=== PATIENT | male | born 1970 | race African-American/Black ===

== ENCOUNTER 2016-10-04 09:52 | Emergency (ER) | payer SELFPAY ==
[~2016-10-04] VITALS: Ht 185.4 cm; Wt 91.0 kg
[2016-10-04] MEDS ORDERED: MORPHINE SULFATE 4 MG/ML CPJ (NOT FOR IM USE) IV STA (10:24)
[2016-10-04] MEDS ORDERED: SODIUM CHLORIDE 0.9% 1,000 ML IV ONE (10:24)
[2016-10-04] MEDS ORDERED: ONDANSETRON HCL 4MG/2ML VIAL IV STA (10:24)
[2016-10-04] MEDS ORDERED: KETOROLAC 30MG/ML VIAL IV ONE (10:30)
[2016-10-04 10:41] LABS: EOSINOPHILS % 3.4 % (0.0-5.0); HEMATOCRIT. 46.4 % (42.0-52.0); HEMOGLOBIN. 15.8 g/dL (14.0-18.0); LYMPHOCYTES % 23.9 % (20.0-50.0); MEAN CORPUSCULAR VOLUME 87.7 fL (80.0-94.0); MONOCYTES % 8.9 % (2.0-8.0); NEUTROPHILS % 62.8 % (40.0-76.0); PLATELET 182 x1000/uL (130-400); RED BLOOD CELL COUNT 5.28 mill/uL (4.7-6.1); RED CELL DISTRIBUTION WIDTH 13.3 % (11.6-14.6)
[2016-10-04 10:54] LABS: INR 1.1; PARTIAL THROMBOPLASTIN TIME 28.9 sec (23.4-31.0); PROTHROMBIN TIME 11.3 sec (9.4-11.6)
[2016-10-04 11:00] LABS: CARBON DIOXIDE 32 mEq/L (21-32); CHLORIDE 104 mEq/L (98-107)
[2016-10-04 11:14] LABS: CLARITY URINE CLEAR (CLEAR); COLOR URINE YELLOW (YELLOW); GLUCOSE URINE NEGATIVE (NEGATIVE); KETONES URINE NEGATIVE (NEGATIVE); LEUKOCYTE ESTERASE URINE NEGATIVE (NEGATIVE); NITRITE URINE NEGATIVE (NEGATIVE); OCCULT BLOOD URINE NEGATIVE (NEGATIVE); PH URINE 6.5 (4.5-8.0); PROTEIN URINE NEGATIVE (NEGATIVE); SPECIFIC GRAVITY URINE 1.009 (1.005-1.030); UROBILINOGEN URINE 0.2 E.U./dL (0.2-1.0)
[2016-10-04 11:57] LABS: *AMPHETAMINES SCREEN URINE PRESUMTIVE POSITIVE (NEGATIVE); *BARBITURATES SCREEN URINE NEGATIVE (NEGATIVE); *BENZODIAZEPINES SCREEN URINE NEGATIVE (NEGATIVE); *COCAINE SCREEN URINE NEGATIVE (NEGATIVE); CANNABINOID URINE SCREEN NEGATIVE (NEGATIVE); METHADONE URINE SCREEN NEGATIVE (NEGATIVE); OPIATES URINE SCREEN NEGATIVE (NEGATIVE); PHENCYCLIDINE URINE SCREEN NEGATIVE (NEGATIVE)
[2016-10-04 12:10] VITALS: BP 125/66
[2016-10-04] MEDS ORDERED: IOHEXOL-300 100 ML BOTTLE ONE (14:03)
[2016-10-04] MEDS ORDERED: SODIUM CHLORIDE 0.9% 10ML VIAL ONE (14:03)
== END 2016-10-04 12:53 | disposition home or self-care (01) ==
LOC: ER 10:18
DX: R10.30 Lower abdominal pain, unspecified (principal); K59.09 Other constipation; F19.129 Other psychoactive substance abuse with intoxication, unspecified
CPT/HCPCS: 36415; 74177; 80053; 80305; 81003; 83690; 85025; 85610; 85730; 96361; 96374; 96375; 96376; 99285; A4216; G0482; J1885; J2270; J2405; J7030; Q9967; Z7610

== ENCOUNTER 2016-10-13 08:48 | Emergency (ER) | payer MEDICAID ==
[~2016-10-13] VITALS: Ht 182.9 cm; Wt 75.0 kg
[2016-10-13] MEDS ORDERED: MORPHINE SULFATE 4 MG/ML CPJ (NOT FOR IM USE) IV STA (09:32)
[2016-10-13] MEDS ORDERED: FAMOTIDINE 20MG/2ML VIAL IV STA (09:32)
[2016-10-13] MEDS ORDERED: ONDANSETRON HCL 4MG/2ML VIAL IV STA (09:32)
[2016-10-13] MEDS ORDERED: SODIUM CHLORIDE 0.9% 1,000 ML IV ONE (09:32)
[2016-10-13 09:55] LABS: BASOPHILS % 0.8 % (0.0-2.0); EOSINOPHILS % 1.3 % (0.0-5.0); HEMOGLOBIN. 16.3 g/dL (14.0-18.0); LYMPHOCYTES % 21.4 % (20.0-50.0); MEAN CORPUSCULAR VOLUME 88.6 fL (80.0-94.0); MEAN PLATELET VOLUME 8.2 fl (7.4-10.4); MONOCYTES % 7.1 % (2.0-8.0); NEUTROPHILS % 69.4 % (40.0-76.0); PLATELET 188 x1000/uL (130-400); RED BLOOD CELL COUNT 5.43 mill/uL (4.7-6.1); RED CELL DISTRIBUTION WIDTH 13.9 % (11.6-14.6)
[2016-10-13] MEDS ORDERED: LORAZEPAM 2MG/ML CPJ IV ONE (10:00)
[2016-10-13 10:04] LABS: PARTIAL THROMBOPLASTIN TIME 30.1 sec (23.4-31.0); PROTHROMBIN TIME 10.7 sec (9.4-11.6)
[2016-10-13 10:11] LABS: CLARITY URINE CLEAR (CLEAR); COLOR URINE YELLOW (YELLOW); GLUCOSE URINE NEGATIVE (NEGATIVE); KETONES URINE 1+ (NEGATIVE); LEUKOCYTE ESTERASE URINE NEGATIVE (NEGATIVE); NITRITE URINE NEGATIVE (NEGATIVE); OCCULT BLOOD URINE NEGATIVE (NEGATIVE); PROTEIN URINE NEGATIVE (NEGATIVE); SPECIFIC GRAVITY URINE 1.007 (1.005-1.030); UROBILINOGEN URINE 0.2 E.U./dL (0.2-1.0)
[2016-10-13 10:11] LABS: CARBON DIOXIDE 27 mEq/L (21-32); CHLORIDE 100 mEq/L (98-107); ETHANOL BLOOD < 10 mg/dL
[2016-10-13 10:57] LABS: *AMPHETAMINES SCREEN URINE PRESUMTIVE POSITIVE (NEGATIVE); *BARBITURATES SCREEN URINE NEGATIVE (NEGATIVE); *BENZODIAZEPINES SCREEN URINE NEGATIVE (NEGATIVE); *COCAINE SCREEN URINE PRESUMTIVE POSITIVE (NEGATIVE); CANNABINOID URINE SCREEN NEGATIVE (NEGATIVE); METHADONE URINE SCREEN NEGATIVE (NEGATIVE); OPIATES URINE SCREEN NEGATIVE (NEGATIVE); PHENCYCLIDINE URINE SCREEN NEGATIVE (NEGATIVE)
[2016-10-13 12:32] VITALS: BP 122/62
== END 2016-10-13 12:34 | disposition home or self-care (01) ==
LOC: ER 09:20
DX: F15.10 Other stimulant abuse, uncomplicated (principal); F14.10 Cocaine abuse, uncomplicated; R10.9 Unspecified abdominal pain; F19.10 Other psychoactive substance abuse, uncomplicated; R11.2 Nausea with vomiting, unspecified
CPT/HCPCS: 36415; 74022; 80053; 80305; 81003; 83690; 85025; 85610; 85730; 96361; 96374; 96375; 99285; G0482; J2060; J2270; J2405; J3490; J7030; Z7610

== ENCOUNTER 2016-10-14 12:09 | Emergency (ER) | payer MEDICAID ==
[~2016-10-14] VITALS: Ht 182.9 cm; Wt 91.0 kg
[2016-10-14 12:34] VITALS: BP 118/89
== END 2016-10-14 14:50 | disposition left against medical advice (07) ==
LOC: ER 12:09
DX: K59.00 Constipation, unspecified (principal); Z53.21 Procedure and treatment not carried out due to patient leaving prior to being seen by health care provider

== ENCOUNTER 2016-10-15 08:11 | Emergency (ER) | payer MEDICAID ==
[~2016-10-15] VITALS: Ht 182.9 cm; Wt 121.0 kg
[2016-10-15 11:09] LABS: CLARITY URINE CLEAR (CLEAR); COLOR URINE DARK YELLOW (YELLOW); GLUCOSE URINE NEGATIVE (NEGATIVE); KETONES URINE 2+ (NEGATIVE); LEUKOCYTE ESTERASE URINE NEGATIVE (NEGATIVE); NITRITE URINE NEGATIVE (NEGATIVE); OCCULT BLOOD URINE NEGATIVE (NEGATIVE); PROTEIN URINE TRACE (NEGATIVE); SPECIFIC GRAVITY URINE 1.031 (1.005-1.030)
[2016-10-15 11:17] LABS: CHLORIDE 102 mEq/L (98-107); PROTHROMBIN TIME 10.7 sec (9.4-11.6)
[2016-10-15 11:20] LABS: BASOPHILS % 0.7 % (0.0-2.0); EOSINOPHILS % 3.7 % (0.0-5.0); HEMATOCRIT. 47.7 % (42.0-52.0); LYMPHOCYTES % 29.1 % (20.0-50.0); MEAN CORPUSCULAR HEMOGLOBIN 29.8 pg (28.0-32.0); MEAN CORPUSCULAR VOLUME 89.1 fL (80.0-94.0); MEAN PLATELET VOLUME 8.3 fl (7.4-10.4); MONOCYTES % 7.7 % (2.0-8.0); NEUTROPHILS % 58.8 % (40.0-76.0); PLATELET 177 x1000/uL (130-400); RED BLOOD CELL COUNT 5.35 mill/uL (4.7-6.1)
[2016-10-15 11:23] LABS: CARBON DIOXIDE 30 mEq/L (21-32)
[2016-10-15 11:28] LABS: *AMPHETAMINES SCREEN URINE PRESUMTIVE POSITIVE (NEGATIVE); *BARBITURATES SCREEN URINE NEGATIVE (NEGATIVE); *BENZODIAZEPINES SCREEN URINE NEGATIVE (NEGATIVE); *COCAINE SCREEN URINE PRESUMTIVE POSITIVE (NEGATIVE); CANNABINOID URINE SCREEN NEGATIVE (NEGATIVE); METHADONE URINE SCREEN NEGATIVE (NEGATIVE); OPIATES URINE SCREEN PRESUMTIVE POSITIVE (NEGATIVE); PHENCYCLIDINE URINE SCREEN NEGATIVE (NEGATIVE)
[2016-10-15 14:06] VITALS: BP 115/68
== END 2016-10-15 14:29 | disposition home or self-care (01) ==
LOC: ER 10:31
DX: K59.00 Constipation, unspecified (principal); F17.200 Nicotine dependence, unspecified, uncomplicated; F11.10 Opioid abuse, uncomplicated; F15.10 Other stimulant abuse, uncomplicated
CPT/HCPCS: 36415; 74010; 80053; 80305; 81001; 83690; 85025; 85610; 99285

== ENCOUNTER 2016-10-26 06:56 | Emergency (ER) | payer MEDICAID ==
[~2016-10-26] VITALS: Ht 185.4 cm; Wt 91.0 kg
[2016-10-26] MEDS ORDERED: IBUPROFEN 800MG TABLET PO ONE (10:30)
[2016-10-26 11:00] VITALS: BP 122/82
== END 2016-10-26 11:31 | disposition home or self-care (01) ==
LOC: ER 10:46
DX: R51 Headache (principal); F17.200 Nicotine dependence, unspecified, uncomplicated; F11.10 Opioid abuse, uncomplicated; F12.10 Cannabis abuse, uncomplicated
CPT/HCPCS: 99283

== ENCOUNTER 2016-10-27 07:30 | Emergency (ER) | payer MEDICAID ==
[~2016-10-27] VITALS: Ht 185.4 cm; Wt 91.0 kg
[2016-10-27 08:45] VITALS: BP 121/77
[2016-10-27] MEDS ORDERED: KETOROLAC 60MG/2ML VIAL IM ONE (08:45)
== END 2016-10-27 09:33 | disposition home or self-care (01) ==
LOC: ER 07:30
DX: R51 Headache (principal); R03.0 Elevated blood-pressure reading, without diagnosis of hypertension; F17.200 Nicotine dependence, unspecified, uncomplicated
CPT/HCPCS: 96372; 99283; J1885; Z7610

== ENCOUNTER 2016-11-11 12:42 | Emergency (ER) | payer MEDICAID ==
[~2016-11-11] VITALS: Ht 180.3 cm; Wt 83.0 kg
[2016-11-11] MEDS ORDERED: MORPHINE SULFATE 4 MG/ML CPJ (NOT FOR IM USE) IV STA (14:00)
[2016-11-11] MEDS ORDERED: MAGNESIUM/ALUMINUM HYDROXIDE/SIMETHICONE 30ML UDC PO STA (14:00)
[2016-11-11] MEDS ORDERED: FAMOTIDINE 20MG/2ML VIAL IV STA (14:00)
[2016-11-11] MEDS ORDERED: SODIUM CHLORIDE 0.9% 1,000 ML IV ONE (14:00)
[2016-11-11] MEDS ORDERED: ONDANSETRON HCL 4MG/2ML VIAL IV STA (14:00)
[2016-11-11] MEDS ORDERED: LORAZEPAM 2MG/ML CPJ IV ONE (14:45)
[2016-11-11 14:47] LABS: BASOPHILS % 0.6 % (0.0-2.0); EOSINOPHILS % 1.5 % (0.0-5.0); HEMATOCRIT. 49.1 % (42.0-52.0); HEMOGLOBIN. 16.7 g/dL (14.0-18.0); LYMPHOCYTES % 23.3 % (20.0-50.0); MEAN CORPUSCULAR HEMOGLOBIN 30.6 pg (28.0-32.0); MEAN PLATELET VOLUME 8.8 fl (7.4-10.4); MONOCYTES % 8.9 % (2.0-8.0); NEUTROPHILS % 65.7 % (40.0-76.0); PLATELET 191 x1000/uL (130-400); RED BLOOD CELL COUNT 5.45 mill/uL (4.7-6.1); RED CELL DISTRIBUTION WIDTH 14.6 % (11.6-14.6)
[2016-11-11 14:53] LABS: D-DIMER 0.22 mg/L FEU (<0.50); INR 1.1
[2016-11-11 15:02] LABS: CARBON DIOXIDE 32 mEq/L (21-32); CHLORIDE 101 mEq/L (98-107); ETHANOL BLOOD < 10 mg/dL; TROPONIN I < 0.02 ng/mL (0.00-0.04)
[2016-11-11 20:30] VITALS: BP 129/90
== END 2016-11-11 20:45 | disposition home or self-care (01) ==
LOC: ER 13:21
DX: T50.901A Poisoning by unspecified drugs, medicaments and biological substances, accidental (unintentional), initial encounter (principal); K29.70 Gastritis, unspecified, without bleeding; K21.9 Gastro-esophageal reflux disease without esophagitis; R06.81 Apnea, not elsewhere classified; Y92.89 Other specified places as the place of occurrence of the external cause; R07.89 Other chest pain
CPT/HCPCS: 36415; 71010; 76705; 80053; 83690; 83880; 84484; 85025; 85379; 85610; 93005; 96361; 96374; 96375; 99285; G0482; J2060; J2270; J2405; J3490; J7030

== ENCOUNTER 2016-11-30 10:38 | Emergency (ER) | payer MEDICAID ==
[~2016-11-30] VITALS: Ht 180.3 cm; Wt 90.0 kg
[2016-11-30] MEDS ORDERED: SODIUM CHLORIDE 0.9% 1,000 ML IV ONE (10:51)
[2016-11-30] MEDS ORDERED: LORAZEPAM 2MG/ML CPJ IV ONE ×2 (11:00→12:00)
[2016-11-30] MEDS ORDERED: LORAZEPAM 2MG/ML CPJ IM ONE (11:00)
[2016-11-30 11:18] LABS: BASOPHILS % 0.8 % (0.0-2.0); EOSINOPHILS % 2.1 % (0.0-5.0); HEMATOCRIT. 47.6 % (42.0-52.0); HEMOGLOBIN. 16.1 g/dL (14.0-18.0); LYMPHOCYTES % 23.6 % (20.0-50.0); MEAN CORPUSCULAR HEMOGLOBIN 30.4 pg (28.0-32.0); MEAN CORPUSCULAR VOLUME 89.8 fL (80.0-94.0); MONOCYTES % 10.1 % (2.0-8.0); NEUTROPHILS % 63.4 % (40.0-76.0); PLATELET 206 x1000/uL (130-400); RED CELL DISTRIBUTION WIDTH 15.4 % (11.6-14.6)
[2016-11-30 11:35] LABS: CARBON DIOXIDE 25 mEq/L (21-32); CHLORIDE 100 mEq/L (98-107); ETHANOL BLOOD < 10 mg/dL; TROPONIN I < 0.02 ng/mL (0.00-0.04)
[2016-11-30 11:58] LABS: INR 1.1; PROTHROMBIN TIME 11.3 sec (9.4-11.6)
[2016-11-30 14:27] VITALS: BP 134/90
[2016-11-30 15:37] LABS: *AMPHETAMINES SCREEN URINE PRESUMTIVE POSITIVE (NEGATIVE); *BARBITURATES SCREEN URINE NEGATIVE (NEGATIVE); *BENZODIAZEPINES SCREEN URINE NEGATIVE (NEGATIVE); *COCAINE SCREEN URINE PRESUMTIVE POSITIVE (NEGATIVE); CANNABINOID URINE SCREEN PRESUMTIVE POSITIVE (NEGATIVE); METHADONE URINE SCREEN NEGATIVE (NEGATIVE); OPIATES URINE SCREEN NEGATIVE (NEGATIVE); PHENCYCLIDINE URINE SCREEN NEGATIVE (NEGATIVE)
== END 2016-11-30 18:52 | disposition home or self-care (01) ==
LOC: ER 11:02
DX: R07.89 Other chest pain (principal); F19.10 Other psychoactive substance abuse, uncomplicated; F41.9 Anxiety disorder, unspecified; R05 Cough; F12.90 Cannabis use, unspecified, uncomplicated; R45.1 Restlessness and agitation; R06.02 Shortness of breath
CPT/HCPCS: 36415; 71010; 80053; 80305; 83880; 84484; 85025; 85610; 93005; 96361; 96372; 96374; 99285; G0482; J2060; J7030

== ENCOUNTER 2016-12-01 06:24 | Emergency (ER) | payer MEDICAID ==
[~2016-12-01] VITALS: Ht 182.9 cm; Wt 89.0 kg
[2016-12-01 06:55] VITALS: BP 136/85
== END 2016-12-01 11:10 | disposition home or self-care (01) ==
LOC: ER 06:40
DX: R07.9 Chest pain, unspecified (principal); F32.9 Major depressive disorder, single episode, unspecified; F20.9 Schizophrenia, unspecified; F43.10 Post-traumatic stress disorder, unspecified; R45.851 Suicidal ideations; F17.200 Nicotine dependence, unspecified, uncomplicated; F14.10 Cocaine abuse, uncomplicated; F15.10 Other stimulant abuse, uncomplicated
CPT/HCPCS: 93005; 99283

== ENCOUNTER 2016-12-10 07:21 | Emergency (ER) | payer MEDICAID ==
[~2016-12-10] VITALS: Ht 182.9 cm; Wt 86.0 kg
[2016-12-10] MEDS ORDERED: LORAZEPAM 0.5MG TABLET PO ONE (09:00)
[2016-12-10 09:13] LABS: BASOPHILS % 0.9 % (0.0-2.0); HEMATOCRIT. 47.5 % (42.0-52.0); HEMOGLOBIN. 15.9 g/dL (14.0-18.0); LYMPHOCYTES % 25.5 % (20.0-50.0); MEAN CORPUSCULAR HEMOGLOBIN 30.5 pg (28.0-32.0); MEAN CORPUSCULAR VOLUME 91.1 fL (80.0-94.0); MEAN PLATELET VOLUME 7.2 fl (7.4-10.4); MONOCYTES % 7.3 % (2.0-8.0); NEUTROPHILS % 63.3 % (40.0-76.0); PLATELET 212 x1000/uL (130-400); RED BLOOD CELL COUNT 5.22 mill/uL (4.7-6.1); RED CELL DISTRIBUTION WIDTH 14.8 % (11.6-14.6)
[2016-12-10 09:18] LABS: CHLORIDE 104 mEq/L (98-107)
[2016-12-10 09:24] LABS: CARBON DIOXIDE 30 mEq/L (21-32); ETHANOL BLOOD < 10 mg/dL
[2016-12-10 09:50] LABS: *AMPHETAMINES SCREEN URINE NEGATIVE (NEGATIVE); *BARBITURATES SCREEN URINE NEGATIVE (NEGATIVE); *BENZODIAZEPINES SCREEN URINE PRESUMTIVE POSITIVE (NEGATIVE); *COCAINE SCREEN URINE PRESUMTIVE POSITIVE (NEGATIVE); CANNABINOID URINE SCREEN PRESUMTIVE POSITIVE (NEGATIVE); METHADONE URINE SCREEN NEGATIVE (NEGATIVE); OPIATES URINE SCREEN NEGATIVE (NEGATIVE); PHENCYCLIDINE URINE SCREEN NEGATIVE (NEGATIVE)
[2016-12-10 12:58] VITALS: BP 116/72
== END 2016-12-10 13:07 | disposition home or self-care (01) ==
LOC: ER 07:31
DX: F41.1 Generalized anxiety disorder (principal); F17.200 Nicotine dependence, unspecified, uncomplicated; F20.9 Schizophrenia, unspecified; F32.9 Major depressive disorder, single episode, unspecified; F14.10 Cocaine abuse, uncomplicated; F13.10 Sedative, hypnotic or anxiolytic abuse, uncomplicated; F12.10 Cannabis abuse, uncomplicated; F15.10 Other stimulant abuse, uncomplicated
CPT/HCPCS: 36415; 80048; 80305; 85025; 99284; G0482; Z7610

== ENCOUNTER 2018-04-26 21:13 | Emergency (ER) | payer MEDICAID ==
[~2018-04-26] VITALS: Ht 182.9 cm; Wt 84.0 kg
[2018-04-26 21:41] VITALS: BP 129/83
== END 2018-04-26 23:24 | disposition left against medical advice (07) ==
LOC: ER 21:13
DX: Z53.21 Procedure and treatment not carried out due to patient leaving prior to being seen by health care provider (principal)
CPT/HCPCS: 93005

== ENCOUNTER 2018-05-07 22:04 | Emergency (ER) | payer MEDICAID ==
[~2018-05-07] VITALS: Ht 180.3 cm; Wt 75.0 kg
[2018-05-08] MEDS ORDERED: LORAZEPAM 1MG TABLET PO ONE ×2 (00:30→08:15)
[2018-05-08 00:49] LABS: BASOPHILS % 0.6 % (0.0-2.0); EOSINOPHILS % 1.4 % (0.0-5.0); HEMOGLOBIN. 17.1 g/dL (14.0-18.0); LYMPHOCYTES % 28.1 % (20.0-50.0); MEAN CORPUSCULAR HEMOGLOBIN 31.2 pg (28.0-32.0); MEAN CORPUSCULAR VOLUME 93.2 fL (80.0-94.0); MEAN PLATELET VOLUME 8.1 fl (7.4-10.4); MONOCYTES % 9.1 % (2.0-8.0); NEUTROPHILS % 60.8 % (40.0-76.0); PLATELET 211 x1000/uL (130-400); RED BLOOD CELL COUNT 5.47 mill/uL (4.7-6.1); RED CELL DISTRIBUTION WIDTH 15.3 % (11.6-14.6)
[2018-05-08 00:51] LABS: CHLORIDE 105 mEq/L (98-107)
[2018-05-08 00:56] LABS: ETHANOL BLOOD < 10 mg/dL
[2018-05-08 00:59] LABS: CLARITY URINE CLEAR (CLEAR); COLOR URINE YELLOW (YELLOW); KETONES URINE TRACE (NEGATIVE); LEUKOCYTE ESTERASE URINE NEGATIVE (NEGATIVE); NITRITE URINE NEGATIVE (NEGATIVE); OCCULT BLOOD URINE NEGATIVE (NEGATIVE); PH URINE 5.5 (4.5-8.0); PROTEIN URINE TRACE (NEGATIVE); SPECIFIC GRAVITY URINE 1.036 (1.005-1.030)
[2018-05-08 01:12] LABS: *AMPHETAMINES SCREEN URINE NEGATIVE (NEGATIVE); *BARBITURATES SCREEN URINE NEGATIVE (NEGATIVE); *BENZODIAZEPINES SCREEN URINE NEGATIVE (NEGATIVE); *COCAINE SCREEN URINE NEGATIVE (NEGATIVE); CANNABINOID URINE SCREEN NEGATIVE (NEGATIVE); METHADONE URINE SCREEN NEGATIVE (NEGATIVE); OPIATES URINE SCREEN NEGATIVE (NEGATIVE); PHENCYCLIDINE URINE SCREEN NEGATIVE (NEGATIVE)
[2018-05-08 15:59] VITALS: BP 129/90
== END 2018-05-08 15:59 | disposition home or self-care (01) ==
LOC: ER 22:04
DX: R44.1 Visual hallucinations (principal); R45.851 Suicidal ideations; F17.200 Nicotine dependence, unspecified, uncomplicated; F12.10 Cannabis abuse, uncomplicated; F41.9 Anxiety disorder, unspecified
CPT/HCPCS: 36415; 80305; 80307; 80320; 80329; 99284; G0480

== ENCOUNTER 2018-05-09 06:30 | Emergency (ER) | payer MEDICAID ==
[~2018-05-09] VITALS: Ht 185.4 cm; Wt 81.0 kg
[2018-05-09] MEDS ORDERED: LORAZEPAM 1MG TABLET PO ONE (10:15)
[2018-05-09 10:20] VITALS: BP 116/78
== END 2018-05-09 11:36 | disposition left against medical advice (07) ==
LOC: ER 06:52
DX: F41.9 Anxiety disorder, unspecified (principal); F43.10 Post-traumatic stress disorder, unspecified; F32.9 Major depressive disorder, single episode, unspecified
CPT/HCPCS: 99285

== ENCOUNTER 2018-05-17 04:24 | Emergency (ER) | payer MEDICAID ==
[~2018-05-17] VITALS: Ht 177.8 cm; Wt 79.0 kg
[2018-05-17] MEDS ORDERED: SODIUM CHLORIDE 0.9% 1,000 ML IV ONE (06:37)
[2018-05-17] MEDS ORDERED: LORAZEPAM 2MG/ML CPJ IV ONE (06:45)
[2018-05-17 06:56] LABS: BASOPHILS % 0.6 % (0.0-2.0); EOSINOPHILS % 2.2 % (0.0-5.0); HEMATOCRIT. 48.3 % (42.0-52.0); HEMOGLOBIN. 16.4 g/dL (14.0-18.0); LYMPHOCYTES % 28.7 % (20.0-50.0); MEAN CORPUSCULAR HEMOGLOBIN 31.3 pg (28.0-32.0); MEAN CORPUSCULAR VOLUME 91.9 fL (80.0-94.0); MEAN PLATELET VOLUME 7.9 fl (7.4-10.4); MONOCYTES % 7.3 % (2.0-8.0); NEUTROPHILS % 61.2 % (40.0-76.0); PLATELET 220 x1000/uL (130-400); RED BLOOD CELL COUNT 5.25 mill/uL (4.7-6.1); RED CELL DISTRIBUTION WIDTH 14.9 % (11.6-14.6)
[2018-05-17 07:01] LABS: CHLORIDE 102 mEq/L (98-107)
[2018-05-17 07:03] LABS: *AMPHETAMINES SCREEN URINE PRESUMTIVE POSITIVE (NEGATIVE); *BARBITURATES SCREEN URINE NEGATIVE (NEGATIVE); *BENZODIAZEPINES SCREEN URINE NEGATIVE (NEGATIVE); *COCAINE SCREEN URINE PRESUMTIVE POSITIVE (NEGATIVE); METHADONE URINE SCREEN NEGATIVE (NEGATIVE); OPIATES URINE SCREEN NEGATIVE (NEGATIVE)
[2018-05-17 07:04] LABS: CANNABINOID URINE SCREEN NEGATIVE (NEGATIVE); PHENCYCLIDINE URINE SCREEN NEGATIVE (NEGATIVE)
[2018-05-17 07:05] LABS: ETHANOL BLOOD < 10 mg/dL
[2018-05-17 08:45] VITALS: BP 139/88
== END 2018-05-17 08:50 | disposition home or self-care (01) ==
LOC: ER 04:24
DX: F15.10 Other stimulant abuse, uncomplicated (principal); F41.9 Anxiety disorder, unspecified; R07.89 Other chest pain; F20.9 Schizophrenia, unspecified; F17.210 Nicotine dependence, cigarettes, uncomplicated; R94.31 Abnormal electrocardiogram [ECG] [EKG]; Z87.828 Personal history of other (healed) physical injury and trauma
CPT/HCPCS: 36415; 71045; 80053; 80305; 80320; 84484; 85025; 93005; 96374; 99284; J2060; J7030; G0480

== ENCOUNTER 2018-06-23 22:11 | Emergency (ER) | payer MEDICAID ==
[~2018-06-23] VITALS: Ht 188 cm; Wt 82.0 kg
[2018-06-23] MEDS ORDERED: KETOROLAC 30MG/ML VIAL IV STA (22:56)
[2018-06-23] MEDS ORDERED: SODIUM CHLORIDE 0.9% 1,000 ML IV ONE (22:56)
[2018-06-23] MEDS ORDERED: MAGNESIUM/ALUMINUM HYDROXIDE/SIMETHICONE 30ML UDC PO ONE (23:00)
[2018-06-23] MEDS ORDERED: FAMOTIDINE 20MG/2ML VIAL IV ONE (23:00)
[2018-06-23] MEDS ORDERED: ONDANSETRON HCL 4MG/2ML INJ IV ONE (23:00)
[2018-06-24 00:02] LABS: CLARITY URINE CLEAR (CLEAR); COLOR URINE YELLOW (YELLOW); KETONES URINE NEGATIVE (NEGATIVE); LEUKOCYTE ESTERASE URINE NEGATIVE (NEGATIVE); NITRITE URINE NEGATIVE (NEGATIVE); OCCULT BLOOD URINE NEGATIVE (NEGATIVE); PH URINE 7.5 (4.5-8.0); PROTEIN URINE NEGATIVE (NEGATIVE)
[2018-06-24 00:03] LABS: BASOPHILS % 0.7 % (0.0-2.0); EOSINOPHILS % 4.7 % (0.0-5.0); HEMATOCRIT. 49.2 % (42.0-52.0); HEMOGLOBIN. 16.5 g/dL (14.0-18.0); LYMPHOCYTES % 33.7 % (20.0-50.0); MEAN CORPUSCULAR HEMOGLOBIN 31.5 pg (28.0-32.0); MEAN CORPUSCULAR VOLUME 94.1 fL (80.0-94.0); MEAN PLATELET VOLUME 8.1 fl (7.4-10.4); MONOCYTES % 7.4 % (2.0-8.0); NEUTROPHILS % 53.5 % (40.0-76.0); PLATELET 198 x1000/uL (130-400); RED BLOOD CELL COUNT 5.23 mill/uL (4.7-6.1); RED CELL DISTRIBUTION WIDTH 14.7 % (11.6-14.6)
[2018-06-24 00:07] LABS: CHLORIDE 106 mEq/L (98-107)
[2018-06-24 00:14] LABS: ETHANOL BLOOD < 10 mg/dL
[2018-06-24 00:17] LABS: *AMPHETAMINES SCREEN URINE PRESUMTIVE POSITIVE (NEGATIVE); *BARBITURATES SCREEN URINE NEGATIVE (NEGATIVE); *BENZODIAZEPINES SCREEN URINE PRESUMTIVE POSITIVE (NEGATIVE); *COCAINE SCREEN URINE NEGATIVE (NEGATIVE)
[2018-06-24 00:18] LABS: CANNABINOID URINE SCREEN NEGATIVE (NEGATIVE); METHADONE URINE SCREEN NEGATIVE (NEGATIVE); OPIATES URINE SCREEN NEGATIVE (NEGATIVE); PHENCYCLIDINE URINE SCREEN NEGATIVE (NEGATIVE)
[2018-06-24] MEDS ORDERED: SODIUM CHLORIDE 0.9% 1,000 ML IV NR (01:53)
[2018-06-24 04:33] VITALS: BP 125/83
== END 2018-06-24 04:57 | disposition home or self-care (01) ==
LOC: ER 22:11
DX: K59.00 Constipation, unspecified (principal); F19.10 Other psychoactive substance abuse, uncomplicated; R10.84 Generalized abdominal pain; F41.9 Anxiety disorder, unspecified; F32.9 Major depressive disorder, single episode, unspecified; F15.10 Other stimulant abuse, uncomplicated; R11.0 Nausea
CPT/HCPCS: 36415; 80053; 80305; 80320; 81003; 83690; 85025; 96374; 96375; 99283; J1885; J2405; J3490; J7030; G0480